=== PATIENT | female | born 1985 | race Caucasian/White ===

== ENCOUNTER 2017-06-02 14:47 | Inpatient (IN) | payer MEDICAID ==
[~2017-06-02] VITALS: Ht 172.7 cm; Wt 103.0 kg
[2017-06-02 16:08] LABS: CALCIUM 8.3 mg/dL (8.5-10.1); CARBON DIOXIDE 25.6 mmol/L (21-32); CHLORIDE SERUM 105 mmol/L (98-107); CREATININE SERUM 0.7 mg/dL (0.6-1.0); GFR1 > 60 mL/min; GLUCOSE SERUM 116 mg/dL (74-106); POTASSIUM SERUM 3.5 mmol/L (3.5-5.1); SODIUM SERUM 140 mmol/L (136-145)
[2017-06-02 18:16] LABS: T3 TOTAL 0.99 ng/mL
[2017-06-02 18:17] LABS: UA SPECIFIC GRAVITY >=1.030 (1.005-1.035); microscopic required? YES; urine erythrocyte TRACE (NEGATIVE)
[2017-06-02 18:29] LABS: CHOLESTEROL/HDL RATIO 3.8; MAGNESIUM 2.3 mg/dL (1.8-2.4); PHOSPHOROUS 4.6 mg/dL (2.5-4.9)
[2017-06-02 18:36] LABS: FREE T4 1.07 ng/dL (0.76-1.46); FREE THYROXINE INDEX 2.9 ug/dL (1.4-4.5); T4(THYROXINE) 7.5 ug/dL (4.7-13.3)
[2017-06-02 18:53] VITALS: BP 127/79
[2017-06-02 20:42] LABS: AMPHETAMINE QUAL UR POSITIVE (NEG <=1000)
[2017-06-02 21:53] VITALS: BP 119/71
[2017-06-03 05:41] VITALS: BP 133/73
[2017-06-03 06:17] LABS: CARBON DIOXIDE 24.8 mmol/L (21-32); CHLORIDE SERUM 106 mmol/L (98-107); CREATININE SERUM 0.7 mg/dL (0.6-1.0); GFR1 > 60 mL/min; GLUCOSE SERUM 122 mg/dL (74-106); PHOSPHOROUS 4.1 mg/dL (2.5-4.9); POTASSIUM SERUM 3.7 mmol/L (3.5-5.1); SODIUM SERUM 139 mmol/L (136-145)
[2017-06-03 06:31] LABS: BASOPHIL % 0.4 % (0-2); PLATELET COUNT 225 x10^3mcL (130-400)
[2017-06-03 09:55] VITALS: BP 136/87
[2017-06-03 13:50] VITALS: BP 149/96
[2017-06-03 17:50] VITALS: BP 150/94
[2017-06-03 21:11] LABS: HCG SERUM QUALITATIVE NEGATIVE; HCG SERUM QUANTITATIVE 0 mIU/mL
[2017-06-03 21:18] VITALS: BP 151/98
[2017-06-03 21:22] LABS: BASOPHIL % 0.2 % (0-2); PLATELET COUNT 220 x10^3mcL (130-400)
[2017-06-03 21:23] LABS: RED CELL DISTRIBUTION WIDTH 18.9 % (11.5-14.5)
[2017-06-04 05:43] VITALS: BP 154/94
[2017-06-04 10:00] VITALS: BP 136/84
[2017-06-04 17:35] VITALS: BP 117/79
[2017-06-04 22:02] VITALS: BP 157/97
[2017-06-05 05:34] VITALS: BP 154/85
[2017-06-05 06:34] LABS: BASOPHIL % 0.4 % (0-2); PLATELET COUNT 245 x10^3mcL (130-400)
[2017-06-05 06:37] LABS: RED CELL DISTRIBUTION WIDTH 18.1 % (11.5-14.5)
[2017-06-05 06:48] LABS: CALCIUM 8.9 mg/dL (8.5-10.1); CARBON DIOXIDE 29.5 mmol/L (21-32); CHLORIDE SERUM 102 mmol/L (98-107); CREATININE SERUM 0.5 mg/dL (0.6-1.0); GFR1 > 60 mL/min; GLUCOSE SERUM 117 mg/dL (74-106); POTASSIUM SERUM 3.9 mmol/L (3.5-5.1); SODIUM SERUM 136 mmol/L (136-145)
[2017-06-05 10:46] VITALS: BP 132/42
[2017-06-05 18:16] VITALS: BP 136/76
[2017-06-05 21:51] VITALS: BP 131/95
[2017-06-06 05:59] VITALS: BP 145/88
[2017-06-06 07:01] LABS: BASOPHIL % 0.3 % (0-2); CARBON DIOXIDE 26.8 mmol/L (21-32); CHLORIDE SERUM 102 mmol/L (98-107); CREATININE SERUM 0.6 mg/dL (0.6-1.0); GFR1 > 60 mL/min; GLUCOSE SERUM 132 mg/dL (74-106); PLATELET COUNT 238 x10^3mcL (130-400); SODIUM SERUM 139 mmol/L (136-145)
[2017-06-06 07:04] LABS: RED CELL DISTRIBUTION WIDTH 18.5 % (11.5-14.5)
[2017-06-06 10:02] VITALS: BP 125/75
[2017-06-06 14:41] VITALS: BP 125/82
[2017-06-06] MEDS ORDERED: APAP/HYDROCODON1 T13 PO (15:52)
[2017-06-06] MEDS ORDERED: COL100 PO (15:53)
[2017-06-06 16:04] VITALS: BP 125/82
== END 2017-06-06 18:05 | disposition left against medical advice (07) | DRG 314 ==
LOC: ED 14:47 → DU 16:56 → MU 16:56 → DU 18:35 → MU 06-04 10:10
PROVIDERS: Emergency Medicine; Family Medicine; Podiatrist; ADMIT Family Medicine
PROC: 0SGK04Z Fusion of Right Tarsometatarsal Joint with Internal Fixation Device, Open Approach (ICD-10-PCS; principal; 2017-06-04 13:00)
DX: S92.311A Displaced fracture of first metatarsal bone, right foot, initial encounter for closed fracture (principal); N17.0 Acute kidney failure with tubular necrosis; E44.0 Moderate protein-calorie malnutrition; S82.831A Other fracture of upper and lower end of right fibula, initial encounter for closed fracture; S00.83XA Contusion of other part of head, initial encounter; S05.11XA Contusion of eyeball and orbital tissues, right eye, initial encounter; S80.01XA Contusion of right knee, initial encounter; S20.219A Contusion of unspecified front wall of thorax, initial encounter; F15.10 Other stimulant abuse, uncomplicated; F17.200 Nicotine dependence, unspecified, uncomplicated; F10.129 Alcohol abuse with intoxication, unspecified; Y90.5 Blood alcohol level of 100-119 mg/100 ml; Y04.0XXA Assault by unarmed brawl or fight, initial encounter; Y92.810 Car as the place of occurrence of the external cause; V43.12XA Car passenger injured in collision with other type car in nontraffic accident, initial encounter; Y92.410 Unspecified street and highway as the place of occurrence of the external cause
CPT/HCPCS: 76001; 82947; 84439; 97110-GP; 97116-GP; 97530-GP; C1713; C9359; G0480; J0690; J1170; J1644; J1885; J2250; J2270; J2704; J3010; J3490; J7030; J7120; Q0092